=== PATIENT | male | born 1935 | race Caucasian/White ===

== ENCOUNTER 2016-10-22 07:25 | Outpatient (CLI) | payer MEDICARE, OTHER ==
[2016-10-22 09:13] LABS: #Eosinphils 0.1 thou/uL (0.0-0.7); #Lymphocytes 1.2 thou/uL (1.20-3.40); #Monocytes 0.6 thou/uL (0.11-0.59); #Neutrophils 3.8 thou/uL (1.40-6.50); %Basophils 0.8 % (0.0-1.0); %Eosinophils 1.7 % (0.0-10.0); %Lymphocytes 21.5 % (21.0-51.0); %Monocytes 9.8 % (0.0-10.0); ALT (SGPT) 10 U/L (0-55); AST (SGOT) 23 U/L (5-34); Alkaline Phosphatase 41 U/L (40-150); Anion Gap 17 mmol/L (10-20); BUN (Urea Nitrogen) 23 mg/dL (8.4-25.7); Bilirubin, Total 0.3 mg/dL (0.2-1.2); Calc. Creatinine Clearance 0 mL/min (70-130); Calcium 9.1 mg/dL (7.8-10.44); Carbon Dioxide 26 mmol/L (23-31); Chloride 101 mmol/L (98-107); Estimated GFR-MDRD 50; Hematocrit 38.8 % (42.0-52.0); Mean Platelet Volume 7.7 fL (7.4-10.4); Protein, Total 6.8 g/dL (5.8-8.1); Red Blood Cell (RBC) Count 4.41 mill/uL (4.70-6.10); White Blood Cell (WBC) Count 5.7 thou/uL (4.8-10.8)
== END 2016-10-22 07:26 | disposition home or self-care (01) ==
LOC: NAV LABSP 07:25
PROVIDERS: ATTEND Family Medicine
DX: I10 Essential (primary) hypertension (principal)
CPT/HCPCS: 36415; 80053; 80164; 84443; 85025

== ENCOUNTER 2016-10-28 12:33 | Outpatient (CLI) | payer MEDICARE, OTHER | END 2016-10-28 12:34 | disposition home or self-care (01) | LOC: NAV LABSP 12:33 | PROVIDERS: ATTEND Family Medicine | DX: F31.9 Bipolar disorder, unspecified (principal) | CPT/HCPCS: 36415; 80164 ==

== ENCOUNTER 2017-08-31 16:22 | Emergency (ER) | payer MEDICARE, OTHER ==
[2017-08-31] MEDS ORDERED: Sodium Chloride 0.9% 1,000 ML ONE (16:44)
[2017-08-31] MEDS ORDERED: Ondansetron HCl/PF 4 MG/2 ML Vial ONE (16:44)
[2017-08-31 17:04] LABS: #Basophils 0.1 thou/uL (0.0-0.2); #Lymphocytes 1.5 thou/uL (1.20-3.40); #Monocytes 0.7 thou/uL (0.11-0.59); %Eosinophils 0.7 % (0.0-10.0); %Lymphocytes 23.8 % (21.0-51.0); %Monocytes 11.2 % (0.0-10.0); %Neutrophils 63.2 % (42.0-75.0); Hemoglobin 14.9 g/dL (14.0-18.0); Mean Corpuscular Hemoglobin 26.7 pg (27.0-31.0); Mean Corpuscular Volume 83.4 fl (80.0-94.0); Platelet Count 262 thou/uL (130-400); RBC Distribution Width 11.8 % (11.5-14.5); Red Blood Cell (RBC) Count 5.57 mill/uL (4.70-6.10); White Blood Cell (WBC) Count 6.4 thou/uL (4.8-10.8)
[2017-08-31 17:16] LABS: ALT (SGPT) 15 U/L (8-55); AST (SGOT) 20 U/L (5-34); Albumin 4.4 g/dL (3.4-4.8); Alkaline Phosphatase 46 U/L (40-150); Anion Gap 17 mmol/L (10-20); BUN (Urea Nitrogen) 43 mg/dL (8.4-25.7); Bilirubin, Total 0.6 mg/dL (0.2-1.2); Calc. Creatinine Clearance 0 mL/min (70-130); Calcium 9.7 mg/dL (7.8-10.44); Carbon Dioxide 24 mmol/L (23-31); Chloride 103 mmol/L (98-107); Estimated GFR-MDRD 40; Globulin 3.4 g/dL (2.4-3.5); Glucose 105 mg/dL (83-110); Magnesium 2.4 mg/dL (1.6-2.6); Potassium 3.9 mmol/L (3.5-5.1); Protein, Total 7.8 g/dL (5.8-8.1); Sodium 140 mmol/L (136-145)
[2017-08-31 17:18] LABS: CKMB 1.6 ng/mL (0-6.6); Troponin I 0.032 ng/mL (< 0.028)
--- NOTE | 2017-08-31 18:54 | RAD ---
ABDOMEN TWO VIEW ONE VIEW CHEST: History: Nausea, vomiting. Comparison: 10-12-15 FINDINGS: No focal airspace consolidation, pneumothorax or effusion. Multiple old right sided rib fractures. On the upright view there is no free air in the hemidiaphragms. Multiple surgical clips in the right upper quadrant of the abdomen. No dilated air fluid in the large or small bowel. Prior detection of the pelvic clips are present. Arterial calcifications are present. IMPRESSION: 1. Clear lungs. 2. No evidence of bowel obstruction. 3. Possibly an old lead adjacent to the left subclavian generator. POS: HOME
== END 2017-08-31 20:40 | disposition home or self-care (01) ==
LOC: NAV ERS 16:22
DX: N28.9 Disorder of kidney and ureter, unspecified (principal); E86.0 Dehydration; I10 Essential (primary) hypertension; M19.90 Unspecified osteoarthritis, unspecified site; E78.5 Hyperlipidemia, unspecified; F01.50 Vascular dementia, unspecified severity, without behavioral disturbance, psychotic disturbance, mood disturbance, and anxiety; F41.9 Anxiety disorder, unspecified; F31.9 Bipolar disorder, unspecified; N40.0 Benign prostatic hyperplasia without lower urinary tract symptoms
CPT/HCPCS: 74022; 80053; 82553; 83735; 84484; 85025; 93005; 96361; 96374; J2405; J7050